=== PATIENT | female | born 2000 | race African-American/Black ===

== ENCOUNTER 2020-07-31 07:47 | Emergency (ER) | payer OTHER, SELFPAY ==
[2020-07-31 07:56] VITALS: BP 150/95; PULSE 98; RESP 18; TEMP 36.7; O2SAT 100
--- NOTE | 2020-07-31 08:17 | ED.SKABFB ---
HPI - Skin/Abscess/Foreign Bdy General Chief complaint: Skin/Abscess/Foreign Body Stated complaint: Abscess right armpit Time Seen by Provider: 07/31/20 08:04 Source: patient Mode of arrival: ambulatory Limitations: no limitations History of Present Illness HPI narrative: 20 years old -[place] female presents with a painful lump on the right axilla started few days ago. Patient had similar symptoms months ago on the left side and was an abscess. The patient denies any fever, chills, nausea, vomiting. Related Data Allergies Allergy/AdvReac Type Severity Reaction Status Date / Time diphenhydramine Allergy Unknown Verified 07/31/20 08:02 [From [facility]] Review of Systems Review of Systems: Narrative: CONSTITUTIONAL: Denies fever, chills, or sweats. EYES: Denies visual changes, redness, or discharge. ENT: Denies rhinorrhea, congestion, sore throat, or otalgia. CARDIOVASCULAR: Denies chest pain, palpitations, or edema. RESPIRATORY: Denies cough or dyspnea. GASTROINTESTINAL: Denies abdominal pain, nausea, vomiting, or diarrhea. GENITOURINARY: Denies dysuria or hematuria. SKIN: Denies rash or itching. MUSCULOSKELETAL: Denies back pain, joint pain, or myalgia. NEUROLOGIC: Denies headache, numbness, or weakness. PSYCHIATRIC: Denies anxiety or depression. Exam Narrative: Exam Narrative: General appearance: Well-developed, well-nourished Skin: Normal color, right axilla showed with a tender 3 x 3 lump, soft, no redness, no discharge Neck: Supple, nontender Chest and respiratory: Airway patent, no respiratory distress, no accessory muscle use Heart: Regular rate/rhythm Neurologic: Alert and oriented ?3, Course Course Emergency Course: Stable Vital Signs Vital signs: Vital Signs Temperature 36.7 C 07/31/20 07:56 Pulse Rate 98 07/31/20 07:56 Respiratory Rate 18 07/31/20 07:56 Blood Pressure 150/95 H 07/31/20 07:56 Pulse Oximetry 100 07/31/20 07:56 Temperature 36.7 C 07/31/20 07:56 Pulse Rate 98 07/31/20 07:56 Respiratory Rate 18 07/31/20 07:56 Blood Pressure 150/95 H 07/31/20 07:56 Pulse Oximetry 100 07/31/20 07:56 Procedures Abscess I/D Right axilla: Date of Incision: 07/31/20 Time of Incision: 11:18 Side (if applicable): right Local Anesthetic: lidocaine 1% and with epi Amount of anesthesia used (mL): 5 Technique: incised with #11 blade Amount of fluid expressed (mL): 10 Irrigation: Yes Packing used?: iodoform I&D Results: Pus and Blood Complications: pain MDM - Skin/Abscess/Foreign Bdy MDM Narrative Medical decision making narrative: Possible abscess Critical Care Time Critical Care Time Critical Care Time: No Discharge Plan Discharge Clinical Impression: Abscess of axilla, right Patient Disposition: Home, Self-Care Condition: Improved Instructions: Abscess (ED) Additional Instructions: Return if symptoms are worsening , call your family physician for appointment, take Tylenol as as needed for aches and pain, continue home medications. Remove the packing in 48 hours Prescriptions: New cephalexin [Keflex] 750 mg capsule 500 mg PO QID Qty: 28 RF: 0 Follow-up/Referrals: Beba Arias MD [Physician] - 08/05/20 PHYSICIAN,[facility] [Primary Care Provider] -
[2020-07-31 09:00] VITALS: BP 158/75; PULSE 95; RESP 17; O2SAT 100
[2020-07-31 11:27] VITALS: BP 142/86; PULSE 96; RESP 17; O2SAT 100
== END 2020-07-31 11:31 | disposition home or self-care (01) ==
PROVIDERS: Emergency Provider Emergency Medicine
DX: L02.411 Cutaneous abscess of right axilla (principal)
CPT/HCPCS: 10061; 87070; 87205; 99283